=== PATIENT | female | born 1980 | race Caucasian/White ===

== ENCOUNTER → 2019-05-03 17:44 | Outpatient (CLI) | payer SELFPAY ==
[2019-05-03 15:42] VITALS: BMI 26.4
[2019-05-03 21:40] LABS: Chlamydia Trachomatis by PCR Negative (Negative); Neisserai gonorrhoeae by PCR Negative (Negative); Probe Check PASS; Sample Adequacy Control PASS; Specimen Processing Control PASS
== END ==
PROVIDERS: Visit Provider Obstetrics & Gynecology
DX: O09.90 Supervision of high risk pregnancy, unspecified, unspecified trimester (principal); Z3A.00 Weeks of gestation of pregnancy not specified
CPT/HCPCS: 87086; 87491; 87591

== ENCOUNTER → 2019-06-09 09:50 | Outpatient (CLI) | payer SELFPAY ==
[2019-06-07 10:33] VITALS: BMI 26.4
[2019-06-09 10:51] LABS: Absolute Lymphocyte Count 1.24 X10^3/uL (0.83-4.51); Absolute Neutrophil Count 5.4 X10^3/uL (2.0-7.7); Basophil# 0.04 X10^3/uL; Basophil% 0.6 % (0-1); Eosinophil# 0.07 X10^3/uL; Hematocrit 42.2 % (37-47); Hemoglobin 14.7 g/dL (12.0-15.0); Lymphocyte # 1.24 X10^3/ul (4.0); Lymphocyte % 17.3 % (19-41); Mean Corp Hgb Conc 34.8 g/dL (32-36); Mean Corpuscular Hgb 30.9 pg (27.0-32.0); Mean Corpuscular Volume 88.8 fL (81-99); Mean Platelet Vol. 10.2 fl (6.2-12.0); Monocyte# 0.41 X10^3/uL; Monocyte% 5.7 % (0-10); NRBC Flagged by Analyzer 0 % (0-5); Neutrophil # 5.38 X10^3/uL (2.7-7.7); Platelet Count 214 K/mm3 (150-450); RBC Distribution Width CV 11.6 % (11.6-14.6); RBC Distribution Width SD 37.2 fl (35.1-43.9); Red Blood Count 4.75 M/mm3 (4.2-5.4); White Blood Count 7.2 K/mm3 (4.4-11.0)
[2019-06-09 11:04] LABS: Glucose Challenge Gest 1H 50g 63 mg/dL (70-140)
[2019-06-09 11:50] LABS: HIV - WCH Non-Reactive (Nonreactive); Hepatitis B Surface Antigen Non-Reactive (Nonreactive); Rubella IgG > 500.0 IU/mL
[2019-06-10 02:56] LABS: Rapid Plasmin Reagin (RPR) NONREACTIVE (NONREACTIVE)
== END ==
PROVIDERS: Referring Provider Obstetrics & Gynecology; Visit Provider Obstetrics & Gynecology
DX: O09.90 Supervision of high risk pregnancy, unspecified, unspecified trimester (principal); O09.291 Supervision of pregnancy with other poor reproductive or obstetric history, first trimester; Z86.32 Personal history of gestational diabetes; Z3A.00 Weeks of gestation of pregnancy not specified
CPT/HCPCS: 36415; 82950; 85025; 86592; 86703; 86762; 86850; 86900; 86901; 87340

== ENCOUNTER → 2019-09-24 15:06 | Outpatient (CLI) | payer SELFPAY ==
[2019-09-24 13:41] VITALS: BMI 26.4
[2019-09-24 15:54] LABS: Absolute Neutrophil Count 7.9 X10^3/uL (2.0-7.7); Basophil# 0.04 X10^3/uL; Basophil% 0.4 % (0-1); Eosinophil# 0.08 X10^3/uL; Eosinophils% 0.8 % (0-5); Hematocrit 38.6 % (37-47); Lymphocyte % 14.8 % (19-41); Mean Corp Hgb Conc 33.7 g/dL (32-36); Mean Corpuscular Hgb 31.6 pg (27.0-32.0); Mean Corpuscular Volume 93.7 fL (81-99); Mean Platelet Vol. 11.1 fl (6.2-12.0); Monocyte# 0.57 X10^3/uL; Monocyte% 5.6 % (0-10); NRBC Flagged by Analyzer 0 % (0-5); Neutrophil # 7.87 X10^3/uL (2.7-7.7); Neutrophil % 77.8 % (47-70); Platelet Count 210 K/mm3 (150-450); RBC Distribution Width CV 11.9 % (11.6-14.6); RBC Distribution Width SD 40.4 fl (35.1-43.9); Red Blood Count 4.12 M/mm3 (4.2-5.4); White Blood Count 10.1 K/mm3 (4.4-11.0)
[2019-09-24 16:19] LABS: Glucose Challenge Gest 1H 50g 204 mg/dL (70-140)
== END ==
PROVIDERS: Referring Provider Obstetrics & Gynecology; Visit Provider Obstetrics & Gynecology
DX: Z34.93 Encounter for supervision of normal pregnancy, unspecified, third trimester (principal)
CPT/HCPCS: 36415; 82950; 85025; 86850; 86900; 86901

== ENCOUNTER 2019-11-17 09:15 | Inpatient (IN) | payer SELFPAY ==
[2019-10-11 15:23] VITALS: BMI 26.4
[2019-11-17] VITALS (23 sets, daily range): BP systolic 100–133; BP diastolic 53–86; PULSE 3–98; RESP 15–18; TEMP 36.3–36.9; O2SAT 97–100; BMI 30.6
--- NOTE | 2019-11-17 08:07 | US_ITS ---
STUDY: SECOND AND THIRD TRIMESTER OBSTETRICAL ULTRASOUND-Limited REASON FOR EXAM: Female, 39 years old routine survey LMP: 03/05/2019 TECHNIQUE: Transabdominal and Transvaginal TECHNICAL QUALITY: Adequate. PRIOR ULTRASOUND: Prior comparison studies are not available for review at this time. FINDINGS: There is a single intrauterine fetus. The fetus is in a cephalic presentation. There is demonstrated cardiac activity with a heart rate of 145 bpm. There is borderline low normal amniotic fluid volume. The largest amniotic fluid pocket measures 2.2 cm. The amniotic fluid index (EVON) is 5.8 cm. No sonographic etiology for the borderline low EVON. The placenta is posterior with a complete previa. Close follow-up is recommended to assure migration of the placenta away from the cervix. There are Grade 1 placental changes. The cervix measures 4.4 cm in length. The adnexal regions are not visualized. BIOMETRY: BPD: 7.8 cm: 31 weeks, 1 days HC: 29.8 cm: 32 weeks, 6 days AC: 32.2 cm: 36 weeks, 0 days FL: 6.7 cm: 34 weeks, 3 days age by current US: 33 weeks, 1 days. NEHAL by current US: 01/04/2020. Estimated weight: 2529 grams, +/- 374 grams, 13.3 %. Age by LMP: 36 weeks, 4 days. NEHAL by LMP: 12/11/2019. US/OB Limited With Biometrics IMPRESSION: Single live intrauterine at 33 weeks, 1 day by current ultrasound with NEHAL of 01/04/2020. Heart rate of 145 bpm. Placenta is posterior and there is a complete previa. Close follow-up sonography is recommended to determine if the placenta will migrate away from the cervix before the due date Low normal EVON at 5.8 cm. There is no sonographic evidence of abnormality to explain the etiology of the low EVON. Findings discussed with Celeste at the office of Dr. Archuleta at the completion of the study by the inspector finishing Bam : The above information has been verbally conveyed by Navneet Ochoa MD to YAYA Alonso, on 11/17/2019 09:19:35 (ET). Electronically Signed: Navneet Ochoa MD at 9:21 EDT , Service support ,
[2019-11-17 10:46] LABS: Bedside Glucose 104 mg/dL (70-110)
[2019-11-17] MEDS: Lactated Ringers 1,000 ML 999 ML IV (11:20)
[2019-11-17 11:41] LABS: Absolute Lymphocyte Count 1.14 X10^3/uL (0.83-4.51); Absolute Neutrophil Count 6.7 X10^3/uL (2.0-7.7); Basophil# 0.04 X10^3/uL; Basophil% 0.5 % (0-1); Eosinophil# 0.05 X10^3/uL; Eosinophils% 0.6 % (0-5); Hematocrit 38.2 % (37-47); Hemoglobin 12.3 g/dL (12.0-15.0); Lymphocyte # 1.14 X10^3/ul (4.0); Lymphocyte % 13.3 % (19-41); Mean Corp Hgb Conc 32.2 g/dL (32-36); Mean Corpuscular Hgb 29.4 pg (27.0-32.0); Mean Corpuscular Volume 91.4 fL (81-99); Mean Platelet Vol. 11.6 fl (6.2-12.0); Monocyte# 0.56 X10^3/uL; Monocyte% 6.6 % (0-10); NRBC Flagged by Analyzer 0 % (0-5); Neutrophil % 78.4 % (47-70); Platelet Count 190 K/mm3 (150-450); RBC Distribution Width CV 11.9 % (11.6-14.6); RBC Distribution Width SD 39.6 fl (35.1-43.9); Red Blood Count 4.18 M/mm3 (4.2-5.4); White Blood Count 8.5 K/mm3 (4.4-11.0)
[2019-11-17 11:46] LABS: Probe Check PASS; Specimen Processing Control PASS
[2019-11-17] MEDS: Lactated Ringers 1,000 ML 150 ML IV (12:30)
[2019-11-17] MEDS: Acetaminophen 500 MG Tablet 1000 MG PO ×2 (14:30→21:17)
[2019-11-17] MEDS: Sodium Citrate/Citric Acid 30 ML UDC PO (14:31)
[2019-11-17 14:35] LABS: Bedside Glucose 81 mg/dL (70-110)
[2019-11-17] MEDS: Cefazolin 2 GM in 0.9% Normal Saline 100 ML IV (14:41)
--- NOTE | 2019-11-17 14:43 | PCM.HPOB.BLA ---
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 nl anatomy scan (3) Gestational diabetes mellitus (GDM) affecting Status: Acute Comment: diet controlled. growth scan at 36 weeks and weekly nsts until delivery. (4) History of oligohydramnios in prior , currently Status: Acute Comment: growth us at 36 weeks (5) History of prior with IUGR Status: Acute Comment: growth US at 36 weeks (6) Oligohydramnios Status: Acute (7) Placenta previa Status: Acute Comment: diagnosed at 36 weeks plan primary SHAVON (8) Status: Acute Qualifiers: Comment: declined ntd, genetic and carrier testing. (9) Rh negative state in antepartum period Status: Acute Comment: Rhogam 28 wk, pp and prn bleeding- will get FOB blood type tested, refusing shot right now. (10) Supervision of high risk , antepartum Status: Acute Comment: PRR NEHAL 12/11/2019 girl Ryann NIKKI Renny Spouse: Quincy (11) Ultrasound scan to evaluate placenta location Status: Acute Comment: needs 32 week US for placental location History and Physical Date of Admission: 11/17/19 Intake Vital Signs 11/17/19 BMI 26.4 11/17/19 Height 5 ft 7 in 11/17/19 Weight: 193 lb 11/17/19 BMI 30.2 11/17/19 BP 116/70 11/17/19 BMI 26.4 Intake Visit Reasons: U/S f/u [employer] Worker Required: No Is patient in pain?: No Allergies No Known Allergies Allergy (Verified 11/17/19 08:55) Medications multivitamin no.47-iron fum 27 mg-folate no.1 1 mg-dha 300 mg capsule cap PO cap 05/03/19 [History Confirmed 11/17/19] Last Menstral Period: 03/06/19 Zika: Zika virus screening: Negative : No PFSH PFSH Medical History H/O gestational diabetes in prior , currently (Acute) Surgical History History of tonsillectomy (Acute) Family History Brother Heart disease Social History (Updated 11/17/19 @ 09:[address] Renuka Archuleta MD) adopted: No household members: family housing: house number of children: 1 pets and animals: Yes history of recent travel: No sexually active: Yes Smoking Status: Never smoker second hand exposure: No alcohol intake: current substance use type: does not use seatbelt use: always do you feel safe at home: Yes additional social history: Nelson Jett- elder counselor physician in [place] Pregancy History 2 Elective abortions Hx Para 1 Spontaneous abortions Hx # Term Pregnancies Ectopic pregnancies Hx # Pregnancies Multiple births # of living children 1 Past Pregnancies Del. Date Name GA/Weeks Outcome Route Bth Weight Infant Gen Labor Lgth Anesthesia Del Locatn Provider FOB 02/22/17 Renny 41 live - full term 6lbs 9oz Male 12 hours none Home Vernell Jane Delivery Date: 02/22/17 On 05/03/19 @ 16:03 Celeste Charlton Gestational DM, oligo HPI U/S f/u : Details: JASMYN JETT is a 39 year old who presents for fu after ultrasound and she is diagnosed with a complete previa and oligohydramnios. OB Visit NEHAL Calculator Estimated Delivery Date Method Current WG Current Estimate 12/11/19 LMP (Certain) 36w 4d Expected Delivery Route/Plan LTCS due to oligo and complete previa Labor Preferences- labor support person: [] pain management options preferred: [] cut cord/dad catch: [] : [] PP control planned: [] discussed possible routes of delivery and associated risks: [] special requests: [] Specific Issue/Plans flu vaccine: declined tdap vaccine: declined rhogam: declining until FOB gets blood type test LARC form signed: [] Problem list reviewed and updated with the most current plan of care details and appropriate orders placed. Relevant counseling for the gestational age provided. Continue routine care and follow up unless otherwise noted in visit notes/problem list details Initial Weight: 169 lb Date EGA Weight BP Urine Prot Glucose FHR FuHt Pres Dilation Effaced St Visit Note 06/07/19 13w 2d 168 lb 6 oz (-10 oz) 109/68 Negative Negative 150 SM- n ovb cramping. 07/08/19 17w 5d 174 lb 6 oz (+5 lb 6 oz) 123/78 Negative Negative 145 18 SM- no vb cramping 08/13/19 22w 6d 180 lb (+11 lb) 120/60 Negative Negative 140 SM- vb cramping. discussed about limiting ultrasound due to personal desire to reduce cost. 09/24/19 28w 6d 192 lb (+23 lb) 102/80 Negative Negative 145 30 SM- no vb lof good fm noo regular ctx 10/11/19 31w 2d 191 lb (+22 lb) 114/68 Negative Negative 140 32 SM- no vb lof good fm no regular ctx BS well controlled. 11/17/19 36w 4d 193 lb (+24 lb) 116/70 ACOG First Trimester First Trimester: Desire for , Alcohol, Tobacco Cessation, Illicit/Recreational Drug/Substance Use, Intimate Partner Violence, Barriers to care, Unstable Housing, Communication Barriers, Environmental/Work Hazards, Anticipated Course of Care, Toxoplasmosis Precations, Use of Any medications, Sexual activity, Exercise, Dental Care, Sauna/Hot tub use, Seat Belt use, Childbirth classes/Hospital facilities, , Travel, Indications for US and Screening for Aneuploidy Second Trimester Second Trimester: Signs and Symptoms of Labor, Selecting a care provider, Reproductive Life Planning, Care Planning, Tobacco Cessation, Depression/Anxiety and Intimate Partner Violence Third Trimester Third Trimester: Pain Management Plans, Labor support person(s), Immediate Larc, Movement Monitoring and Feeding Yes ; discussed Trial of Labor after Counseling or discussed Circumcision preference Diagnostics Diagnostics Diagnostics Blood Type O NEGATIVE 09/24/19 Antibody Screen NEGATIVE 09/24/19 Glucose 1 Hr 50 gm 204 mg/dL (70-140) H 09/24/19 HIV 1&2 Antibody Non-Reactive (Nonreactive) 06/09/19 Rubella IgG Antibody > 500.0 IU/mL 06/09/19 Hgb 13.0 g/dL (12.0-15.0) 09/24/19 Hct 38.6 % (37-47) 09/24/19 RPR NONREACTIVE (NONREACTIVE) 06/09/19 Details: HIV: Urine Culture: Sequential Screen: NIPT Screen: ROS Const Reports system reviewed and no additional complaints, except as docu Card Reports system reviewed and no additional complaints, except as docu Resp Reports system reviewed and no additional complaints, except as docu GI Reports system reviewed and no additional complaints, except as docu, Reports nausea Reports system reviewed and no additional complaints, except as docu Musc Reports system reviewed and no additional complaints, except as docu Exam Const General: cooperative, healthy appearing, comfortable, anxious HENMT Head: normal to inspection Nose: external nose normal Face and sinus: normal facial exam Neck Neck: normal visual inspection, full ROM, no lymphadenopathy Thyroid: thyroid normal Chest Chest palpation & inspection: normal inspection of the chest Resp Effort & Inspection: normal respiratory effort GI Inspection: normal to inspection Palpation: soft, other (gravid uterus) Other: vertex and appropriate size for gestational age Other: Cervical Exam: Extrem General: pedal edema Assessment & Plan Problems 1. 36 weeks gestation of Z3A.36 2. Supervision of high risk , antepartum O.90 3. AMA (advanced maternal age) multigravida 35+ O09.529 4. History of oligohydramnios in prior , currently O09.299 5. History of prior with IUGR Z87.59 6. Rh negative state in antepartum period O26.899; Z67.91 7. Ultrasound scan to evaluate placenta location Z36.89 8. Family history of congenital heart defect Z82.79 9. Gestational diabetes mellitus (GDM) affecting O24.419 10. Placenta previa O44.00 diagnosed at 36 weeks plan primary SHAVON 11. Oligohydramnios O41.00X0 Plan plan primary , patient to l and d for admission and delivery. rh negative, negative declined rhogam GDMA1- plan BS check preop and Coding Level of Care Code OB Routine Diagnoses 36 weeks gestation of Z3A.36 ??Weeks of gestation: 36 weeks Supervision of high risk , antepartum O09.90 AMA (advanced maternal age) multigravida 35+ O09.529 History of oligohydramnios in prior , currently O09.299 History of prior with IUGR Z87.59 Rh negative state in antepartum period O26.899; Z67.91 Ultrasound scan to evaluate placenta location Z36.89 Family history of congenital heart defect Z82.79 Gestational diabetes mellitus (GDM) affecting O24.419 Placenta previa O44.00 Oligohydramnios O41.00X0
--- NOTE | 2019-11-17 14:44 | PCM.OPRPT ---
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 nl anatomy scan (3) Gestational diabetes mellitus (GDM) affecting Status: Acute Comment: diet controlled. growth scan at 36 weeks and weekly nsts until delivery. (4) History of oligohydramnios in prior , currently Status: Acute Comment: growth us at 36 weeks (5) History of prior with IUGR Status: Acute Comment: growth US at 36 weeks (6) Oligohydramnios Status: Acute (7) Placenta previa Status: Acute Comment: diagnosed at 36 weeks plan primary SHAVON (8) Status: Acute Qualifiers: Comment: declined ntd, genetic and carrier testing. (9) Rh negative state in antepartum period Status: Acute Comment: Rhogam 28 wk, pp and prn bleeding- FOB rh negative refusing shot right now. (10) Supervision of high risk , antepartum Status: Acute Comment: PRR NEHAL 12/11/2019 girl Ryann JORDAN Renny Spouse: [place] (11) Ultrasound scan to evaluate placenta location Status: Acute Comment: needs 32 week US for placental location Delivery Classification: Scheduled Final NEHAL: 12/11/19 Gestational age: 36 Weeks and 5 Days marketing strategy manager: Willian Rivera Type of Anesthesia:: Spinal Special Medications: none Implants Used: none Date of Procedure: 11/17/19 Pre-Operative Diagnosis: complete previa and oligohydramnios gdma1 Post-Operative Diagnosis: same Indications for : Placenta Previa Description of Procedure: Spinal anesthesia was placed without difficulty. Savage catheter was placed. The patient was placed in the dorsal supine position with leftward tilt. Patient was prepped and draped in the normal sterile fashion. Pfannenstiel skin incision was made with the scalpel and carried through to the underlying layer of fascia with the scalpel. Fascia was nicked in the midline and the incision extended laterally. The rectus bellies were dissected off superiorly and inferiorly with out complication both sharply and bluntly. The peritoneum was entered digitally. The incision was stretched and a low transverse uterine incision was made with the scalpel. The infant's head was delivered atraumatically followed by the anterior and posterior shoulders without complication the rest of the delivered. The cord was clamped and cut and the infant was handed off to awaiting nurse. The placenta was delivered spontaneously immediately following and was noted to be intact and have a three-vessel cord. The uterus was exteriorized cleared of all clots and debris, and the incision was closed in a double layer closure using #1 Monocryl. The ovaries and fallopian tubes were noted to be within normal limits. The uterus was returned to the maternal abdomen and gutters were cleared of all clots and debris. The peritoneum was closed with 3-0 Monocryl in a running fashion but opened up with patient vomiting, therefore it was not reclosed. Gloves were changed prior to fascial closure. Fascia was closed with 0 PDS in a running fashion. Subcutaneous tissue was copiously irrigated and the skin was closed with 3-0 Monocryl in a subcuticular fashion. Mepilex dressing was applied without complication. Patient was taken to recovery in stable condition. It was discussed with the patient that based on the clinical information obtained during this encounter, combined with her history, at this time I would recommend vaginal or cesareans for future deliveries if further pregnancies are desired. Amniotic Membrane Rupture Type: Artificial Amniotic Fluid Description: Clear Placenta Disposition: [facility] Specimen(s) sent to pathology: none Drain: Savage to straight drain Fluids Replaced: crystalloid Cord Entanglement: True Knot(s) Cord Vessel Description: 3 Vessels Esitmated Blood Loss (ml): 900 Infant Gender: Female (1 minute): 9 (5 minute): 9 Delayed cord clamping: Yes Antibiotic Given: Ancef 2 grams IV x1 Pt instructed on risks of surgery: Bleeding, Anesthesia Risks, Infection, Injury to surrounding structure(s) including bowel and bladder Complications: None - Admit VTE Documentation VTE Present on Admission: No VTE Mechan Device Prophylaxis: SCD's Multi Select Codes - Urinary/Genital Urinary/Genital CPT Codes: 66269 Delivery [facility]
[2019-11-17] MEDS: Oxytocin 30 units/NS 500 ml 30 UNITS/500 ML IV.SOLN 167 UNITS IV (15:45)
--- NOTE | 2019-11-17 16:29 | NURSING ---
1605- small quarter size clot noted with fundal exam.
[2019-11-17 17:46] LABS: Bedside Glucose 101 mg/dL (70-110)
[2019-11-17] MEDS: Lactated Ringers 1,000 ML 100 ML IV (18:54)
[2019-11-17] MEDS: Ketorolac 30 MG/ML Syringe IV (21:17)
[2019-11-18] VITALS (12 sets, daily range): BP systolic 98–112; BP diastolic 55–65; PULSE 68–88; RESP 16–18; TEMP 36.3–36.4; O2SAT 75–99
[2019-11-18] MEDS: Ketorolac 30 MG/ML Syringe IV ×3 (03:35→15:17)
[2019-11-18] MEDS: Acetaminophen 500 MG Tablet 1000 MG PO ×3 (03:35→15:17)
[2019-11-18 05:02] LABS: Hematocrit 32.4 % (37-47); Hemoglobin 10.5 g/dL (12.0-15.0); Mean Corp Hgb Conc 32.4 g/dL (32-36); Mean Corpuscular Hgb 30.3 pg (27.0-32.0); Mean Corpuscular Volume 93.4 fL (81-99); Mean Platelet Vol. 11.6 fl (6.2-12.0); Platelet Count 161 K/mm3 (150-450); RBC Distribution Width CV 12.2 % (11.6-14.6); RBC Distribution Width SD 41.5 fl (35.1-43.9); Red Blood Count 3.47 M/mm3 (4.2-5.4); White Blood Count 8.8 K/mm3 (4.4-11.0)
[2019-11-18 06:40] LABS: Bedside Glucose 119 mg/dL (70-110)
--- NOTE | 2019-11-18 06:48 | PCM.PN.OB ---
Subjective: doing well no complaints pain controlled no CP SOB N V ambulating well tolerating po lochia moderate, going well - Physical Exam Vitals/I&O's: Vital Signs Temp Pulse Resp BP Pulse Ox 97.5 F L 79 16 98/57 L 99 11/18/19 03:57 11/18/19 03:57 11/18/19 03:57 11/18/19 03:57 11/18/19 03:57 Oxygen Delivery Method Room Air Weight: 192 lb 7.417 oz Body Mass Index (BMI) 30.6 Intake and Output for Last 24 Hours 11/16/19 11/17/19 11/18/19 23:59 23:59 23:59 Intake Total 3393 / 3393 866.67 / 866.67 Output Total 2200 / 2200 Balance 1193 / 1193 866.67 / 866.67 General: Alert, Oriented x3 Laboratory Results 11/17/19 10:10: COVID-19 (DARYA) Negative 11/17/19 10:39: POC Glucose 104 11/17/19 11:20: WBC 8.5, RBC 4.18 L, Hgb 12.3, Hct 38.2, MCV 91.4, MCH 29.4, MCHC 32.2, RDW Std Deviation 39.6, RDW Coeff of [place] 11.9, Plt Count 190, MPV 11.6, Immature Gran % (Auto) 0.600, Neut % (Auto) 78.4 H, Lymph % (Auto) 13.3 L, [place] % (Auto) 6.6, Eos % (Auto) 0.6, Baso % (Auto) 0.5, Absolute Neuts (auto) 6.7, Absolute Lymphs (auto) 1.14, Nucleated RBC % 0 11/17/19 11:20: Blood Type O NEGATIVE, Antibody Screen NEGATIVE 11/17/19 11:20: Crossmatch See Detail 11/17/19 14:26: POC Glucose 81 11/17/19 16:45: POC Glucose 101 11/18/19 04:50: WBC 8.8, RBC 3.47 L, Hgb 10.5 L, Hct 32.4 L, MCV 93.4, MCH 30.3, MCHC 32.4, RDW Std Deviation 41.5, RDW Coeff of [place] 12.2, Plt Count 161, MPV 11.6 11/18/19 06:34: POC Glucose 119 H Current Medications Acetaminophen (Tylenol) 1,000 mg PO Q6H [facility] Last Admin: 11/18/19 03:35 Dose: 1,000 mg Documented by: Bisacodyl (Dulcolax) 10 mg RECTAL UD PRN PRN Reason: If no BM Dextrose (D50w Syringe) 0 gm IV X1 PRN; Protocol PRN Reason: Hypoglycemia Diphenhydramine HCl (Benadryl) 25 mg PO Q6H PRN PRN PRN Reason: ITCHING Stop: 11/18/19 15:01 Glucagon () 1 mg IM .X1 PRN PRN Reason: Hypoglycemia Hydrocortisone (Hytone) 1 applic TOPICAL TID PRN PRN; Protocol PRN Reason: Discomfort Naloxone HCl 4 mg/ Dextrose 504 mls @ 0 mls/hr IV .Q0M PRN; Protocol PRN Reason: Respiratory depression Ketorolac Tromethamine (Toradol (Bkc)) 30 mg IV Q6H [facility] Stop: 11/18/19 15:01 Last Admin: 11/18/19 03:35 Dose: 30 mg Documented by: Methylergonovine Maleate (Methergine) 0.2 mg IM X1 PRN PRN Reason: Uterine Atony Nalbuphine HCl (Nubain) 5 mg IV Q3H PRN PRN PRN Reason: ITCHING Stop: 11/18/19 15:01 Naloxone HCl (Narcan) 0.02 mg IV Q1M PRN PRN Reason: RR <10 and pt unresponsive Naproxen (Naprosyn) 500 mg PO Q8 [facility] Ondansetron HCl (Zofran) 4 mg IV Q4H PRN PRN PRN Reason: Nausea Oxycodone HCl (Oxyir) 5 - 10 mg PO Q4H PRN PRN PRN Reason: Pain Score 4-10/10 Prochlorperazine Edisylate (Compazine Iv) 10 mg IV Q6H PRN PRN PRN Reason: NAUSEA Senna/Docusate Sodium (Senokot-S, Johanna-Colace) 0 tablet PO DAILY [facility] Simethicone (Mylicon) 80 mg PO PCHS PRN PRN Reason: Indigestion/stomach pain Sodium Chloride () 5 - 15 ml IV UD PRN PRN Reason: SALINE FLUSH Medical Necessity - Tobacco Use Smoking Status: Former smoker Assessment/Plan All Active Problems (Last Reviewed 11/17/19 @ 08:55 by Celeste Charlton) Oligohydramnios (Acute) Placenta previa (Acute) Family history of congenital heart defect (Acute) Gestational diabetes mellitus (GDM) affecting (Acute) Ultrasound scan to evaluate placenta location (Acute) Rh negative state in antepartum period (Acute) History of prior with IUGR (Acute) History of oligohydramnios in prior , currently (Acute) Supervision of high risk , antepartum (Acute) AMA (advanced maternal age) multigravida 35+ (Acute) (Acute) s/p LTCS PPD # 1 1. routine post care 2. breast feeding- support given 3. rh negative refuse rhogam due to rh negative 4. rubella immune GDM- BS WNL plan 1 hr gct pp
--- NOTE | 2019-11-18 06:49 | DCINST_ITS ---
Discharge Diet: No Restrictions Discharge Activity: May Not Drive - for 2 weeks, May not drive while taking narcotic pain medications., May Shower, May Take a Tub Bath - in 7 days May resume sexual activity in: 4-6 weeks Lifting Restrictions: 20 pounds Additional Activity Instructions:: Nothing in the vagina for 4-6 weeks. You may return to work/school in 6 weeks. Call your doctor if your incision/area has: Continuous Slow Oozing, Sudden Increased Bleeding, Increased Pain/ Swelling, Increased Redness, Foul Smelling Discharge Call your doctor if you observe: Fever of 101 or Higher, Using more than one pad per hour - for 2 hours Suture Line Care: Avoid Pulling/Pushing, Avoid Pinching/Bending Cleanse incision/area with: Keep Dressing Clean & Dry Additional Instructions: If you experience any of the following, contact your healthcare provider. * Bleeding that soaks a pad every hour for 2 hours * Fever 100.4 or higher * Unrelieved incision or abdominal pain * Swelling, redness, discharge or bleeding from your incision or episiotomy site * Your incision begins to separate * Problems urinating (including inability to urinate or burning while urinating). * Visual changes * Severe headache * Flu-like symptoms * Pain or redness in one of both of your breasts * Pain, warmth, tenderness or swelling in your legs, especially the calf area * Frequent nausea and vomiting * Symptoms of depression or anxiety If you experience any of the following, call 911 or go to the nearest Emergency Room. * Chest pain * Problems breathing * Seizure activity * Partial or complete paralysis of a body part, slurred speech, weakness or drooping of the face, or a sudden inability to walk or hold your balance Allergies/Adverse Reactions: Allergies No Known Allergies Allergy (Verified 11/17/19 08:55) Medications to take at Discharge multivitamin no.47-iron fum 27 mg-folate no.1 1 mg-dha 300 mg capsule 1 cap PO DAILY cap 05/03/19 Boostrix Tdap 2.5 Lf unit-8 mcg-5 Lf/0.5 mL intramuscular syringe 0.5 ml IM ONCE #1 ml NS 09/24/19 Naproxen [Naprosyn] 250 - 500 mg PO Q8H PRN PRN #30 tab 11/18/19 Oxycodone HCl/Acetaminophen [Percocet 5-325] 1 - 2 tablet PO Q6H PRN PRN 7 Days #15 tablet 11/18/19 The following prescriptions were given: Naproxen [Naprosyn] 250 - 500 mg PO Q8H PRN PRN #30 tab PRN Reason: MILD PAIN Transmission Status: Pending to [facility] Oxycodone HCl/Acetaminophen [Percocet 5-325] 1 - 2 tablet PO Q6H PRN PRN 7 Days #15 tablet PRN Reason: Pain Transmission Status: Sent to [facility] Follow-Up: Call to make an appointment with your doctor for an incision check in 1-2 weeks. You will also need a 6 week post- follow up appointment. Test results from this visit will be discussed in further detail at your follow-up appointment, if applicable. Please Follow Up With: Renuka Archuleta MD - Call to make an appointment for an incision check in 1-2 [phone] When: You will need a post- check in 6 weeks. Primary Care Physician: Care Physician,No Primary [Primary Care Provider] -
[2019-11-18] MEDS: Senna/Docusate Sodium 1 Tablet PO (09:30)
[2019-11-18] MEDS: 0.9% Saline Lock 10 ML Syringe IV ×2 (09:31→15:17)
[2019-11-19 12:10] VITALS: O2SAT 93
[2019-11-19 12:11] VITALS: BP 152/102; PULSE 106
== END 2019-11-18 19:08 | disposition home or self-care (01) | DRG 787 ==
LOC: WP 09:15
PROVIDERS: Admitting Provider Obstetrics & Gynecology; Referring Provider Obstetrics & Gynecology; Visit Provider Obstetrics & Gynecology
PROC: 10D00Z1 Extraction of Products of Conception, Low, Open Approach (ICD-10-PCS; CPT 59514; principal; 2019-11-17 12:45)
DX: O44.03 Complete placenta previa NOS or without hemorrhage, third trimester (principal); O41.03X0 Oligohydramnios, third trimester, not applicable or unspecified; O36.0130 Maternal care for anti-D [Rh] antibodies, third trimester, not applicable or unspecified; O24.420 Gestational diabetes mellitus in childbirth, diet controlled; O69.2XX0 Labor and delivery complicated by other cord entanglement, with compression, not applicable or unspecified; Z3A.36 36 weeks gestation of pregnancy; Z37.0 Single live birth; Z28.21 Immunization not carried out because of patient refusal; Z87.891 Personal history of nicotine dependence; Z87.59 Personal history of other complications of pregnancy, childbirth and the puerperium; Z82.79 Family history of other congenital malformations, deformations and chromosomal abnormalities
CPT/HCPCS: 59025; 59050; 76816; 76817; 82962; 85025; 85027; 86850; 86900; 86901; 86920; 87635; 99218; G2023; J7120; A4216; G0378; J2405; U0003